=== PATIENT | male | born 1965 | race Caucasian/White ===

== ENCOUNTER → 2019-11-14 | Outpatient (CLI) | payer BC ==
--- NOTE | 2019-11-14 16:03 | RAD ---
INDICATION: Reason: RT SHOULDER PAIN RADIATING TO NECK / Spl. Instructions: / History: COMPARISON: None. IMPRESSION: Right shoulder: 4 views obtained. No evidence of acute fracture or dislocation. Inferior acromial spurring which could predispose the patient to chronic rotator cuff injury. Electronically signed by: Marlon Bear MD (11/14/2019 4:00 PM) [id number]
== END ==
LOC: RAD 10:06
PROVIDERS: ATTEND Physician Assistant
DX: S46.091A Other injury of muscle(s) and tendon(s) of the rotator cuff of right shoulder, initial encounter (principal); M75.81 Other shoulder lesions, right shoulder; X58.XXXA Exposure to other specified factors, initial encounter; Y93.89 Activity, other specified; Y92.89 Other specified places as the place of occurrence of the external cause; Y99.8 Other external cause status
CPT/HCPCS: 73030